=== PATIENT | female | born 1950 | race Caucasian/White ===

== ENCOUNTER 2021-02-06 11:20 | Day surgery (SDC) | payer BC ==
[~2021-02-06] VITALS: Ht 165.1 cm; Wt 73.8 kg
[~2021-02-06 11:20] MED LIST: BASAGLAR K100 UNIT/1 SC; BUPR75 PO; CLIMARA1 EACH; ESCI10 PO; INVOKANA100 MG PO; SOLI5 PO; TRAZ50 PO
[2021-02-06] MEDS ORDERED: TRULICITY1.5 MG/0.1 SC (12:14)
[2021-02-06] MEDS ORDERED: ESTRADIOL (TWI1 EACH TD (12:15)
[2021-02-06] MEDS ORDERED: ATORVASTATIN CA20 MG PO (12:15)
[2021-02-06] MEDS ORDERED: DICLOFENAC SOD100 G1 TP (12:17)
--- NOTE | 2021-02-06 14:33 | NUR ---
02/06/21 1433 Yu King TXA 740MG STARTED AT 1431, ORDERED BY SURGEON AND ANESTHESIOLOGIST. SINGLE DOSE ONLY ORDERED.
== END 2021-02-06 16:20 | disposition home or self-care (01) ==
LOC: ORSCSDS 11:20
PROVIDERS: Podiatrist Foot & Ankle Surgery
PROC: 0L8P0ZZ Division of Left Lower Leg Tendon, Open Approach (ICD-10-PCS; principal; 2021-02-06 12:30)
PROC: 0LXW0ZZ Transfer Left Foot Tendon, Open Approach (ICD-10-PCS; principal; 2021-02-06 12:30)
DX: S86.212A Strain of muscle(s) and tendon(s) of anterior muscle group at lower leg level, left leg, initial encounter (principal); M21.372 Foot drop, left foot; I10 Essential (primary) hypertension; E11.9 Type 2 diabetes mellitus without complications; E78.5 Hyperlipidemia, unspecified; Z79.899 Other long term (current) drug therapy
CPT/HCPCS: 82947; C1713; J0171; J1100; J1885; J2370; J2405; J2704; J3010; J3370; J7120